=== PATIENT | male | born 1985 | race Caucasian/White ===

== ENCOUNTER 2022-09-05 19:23 | Emergency (ER) | payer MEDICAID, SELFPAY ==
[2022-09-05] VITALS (7 sets, daily range): BP systolic 110–155; BP diastolic 66–111; PULSE 59–87; RESP 18–20; TEMP 36.8–36.9; O2SAT 95–99; BMI 27.7
--- NOTE | 2022-09-05 20:13 | CT_ITS ---
PROCEDURE INFORMATION: Exam: CTA Chest With Contrast Exam date and time: 09/05/2022 8:31 PM Age: 37 years old Clinical indication: Other: Hemetesis; Additional info: Hematemesis, epigsagtric pain to back TECHNIQUE: Imaging protocol: Computed tomographic angiography of the chest with contrast. Exam focused on the arteries. 3D rendering (Not supervised by radiologist): MIP and/or 3D reconstructed images were created by the technologist. Radiation optimization: All CT scans at this facility use at least one of these dose optimization techniques: automated exposure control; mA and/or kV adjustment per patient size (includes targeted exams where dose is matched to clinical indication); or iterative reconstruction. Contrast material: ISOVUE 370; Contrast volume: 100 ml; Contrast route: INTRAVENOUS (IV); REPORTING DATA: Count of CT and Cardiac NM exams in prior 12 months: This patient has received 0 known CTs and 0 known cardiac nuclear medicine studies in the 12 months prior to the current study. COMPARISON: No relevant prior studies available. FINDINGS: Pulmonary arteries: No pulmonary emboli. Aorta: No aortic dissection. Lungs: Mild paraseptal emphysema. There is a 10 mm right lower lobe pulmonary nodule on image 53 series 5. Pleural spaces: Unremarkable. No pneumothorax. No pleural effusion. Heart: Unremarkable. No cardiomegaly. No pericardial effusion. Lymph nodes: Unremarkable. No enlarged lymph nodes. Bones/joints: Unremarkable. No acute fracture. Soft tissues: Unremarkable. Other findings: Please see separate report for abdomen/pelvis. IMPRESSION: 1. No aortic dissection. 2. No pulmonary emboli. 3. There is a 10 mm right lower lobe pulmonary nodule on image 53 series 5. For both low risk and high risk patients, consider CT Chest at 3 months, PET/CT, or biopsy. (Reference: Miesha) REFERENCES: Miesha Sher et al. Guidelines for Management of Incidental Pulmonary Nodules Detected on CT Images: From the Fleischner Society 2017. Radiology. 2017;284(1):228-243.
--- NOTE | 2022-09-05 20:13 | CT_ITS ---
PROCEDURE INFORMATION: Exam: CTA Abdomen and Pelvis With Contrast Exam date and time: 09/05/2022 8:31 PM Age: 37 years old Clinical indication: Condition or disease; Other: Hematemesis TECHNIQUE: Imaging protocol: Computed tomographic angiography of the abdomen and pelvis with contrast. Exam focused on the arteries. 3D rendering (Not supervised by radiologist): MIP and/or 3D reconstructed images were created by the technologist. Radiation optimization: All CT scans at this facility use at least one of these dose optimization techniques: automated exposure control; mA and/or kV adjustment per patient size (includes targeted exams where dose is matched to clinical indication); or iterative reconstruction. Contrast material: ISOVUE 370; Contrast volume: 100 ml; Contrast route: INTRAVENOUS (IV); REPORTING DATA: Count of CT and Cardiac NM exams in prior 12 months: This patient has received 0 known CTs and 0 known cardiac nuclear medicine studies in the 12 months prior to the current study. COMPARISON: No relevant prior studies available. FINDINGS: Aorta: No aortic dissection. Celiac trunk and mesenteric arteries: No occlusion or significant stenosis. Renal arteries: No occlusion or significant stenosis. Right iliac arteries: No occlusion or significant stenosis. Left iliac arteries: No occlusion or significant stenosis. Other arteries: The arteries demonstrate mild atherosclerotic disease. Liver: No mass. Gallbladder and bile ducts: Unremarkable. No calcified stones. No ductal dilation. Pancreas: Unremarkable. No mass. No ductal dilation. Spleen: Unremarkable. No splenomegaly. Adrenal glands: Unremarkable. No mass. Kidneys and ureters: Unremarkable. No solid mass. No hydronephrosis. Stomach and bowel: No extravasated contrast in the bowel lumen to identify the site of GI bleed. There is a possible duodenal ulcer (D1 segment) on image 30 series 7 measuring 9 mm. There is surrounding edema. No free air. Moderate amount of stool in the colon. Appendix: No evidence of appendicitis. Intraperitoneal space: See Stomach and bowel finding. Lymph nodes: Unremarkable. No enlarged lymph nodes. Urinary bladder: Unremarkable. No mass. Reproductive: Unremarkable as visualized. Bones/joints: Chronic pars defects of L5. Soft tissues: Tiny fat containing umbilical hernia. Other findings: Please see separate report for CT chest. IMPRESSION: 1. No extravasated contrast in the bowel lumen to identify the site of GI bleed. 2. No aortic dissection. 3. There is a possible duodenal ulcer (D1 segment) on image 30 series 7 measuring 9 mm. There is surrounding edema. No free air.
--- NOTE | 2022-09-05 20:17 | HMH.EDGENADL ---
Discharge Plan Disposition Patient Disposition: Home, Self-Care Prescriptions Prescriptions: New alum-mag hydroxide-simeth [Maalox Advanced] 200-200-20 mg/5 mL suspension 5 ml PO TID PRN (Reason: dyspepsia) Qty: 355 0RF esomeprazole magnesium 40 mg capsule,delayed release(DR/EC) 40 mg PO DAILY 56 Days Qty: 56 0RF famotidine [Pepcid] 20 mg tablet 20 mg PO BID 42 Days Qty: 84 0RF Referrals Follow up/Referrals: Rayo Godwin MD [Primary Care Provider] - See instructions Katelin Baron APRN [Staff Physician] - See instructions Activity Restrictions/Add. Instructions Additional Instructions/Restrictions: Follow-up with gastroenterology, information has been placed in this discharge packet. Take medications as prescribed. Take them for the full 6 weeks. If you have any worsening of your condition or any other concerning signs or symptoms, return to the emergency department or your primary care doctor for further evaluation. Clinical Impressions Clinical Impression: Duodenal ulcer Instructions Patient Instructions: DI for Acute Abdominal Pain Discharge ED Provider: Kalpesh Richmond [facility] Adult HPI General Chief complaint: Abdominal Pain Stated complaint: vomiting up blood Time Seen by Provider: 09/05/22 19:30 Mode of Arrival: Family Vehicle Source of Information: Patient Limitations: No Limitations Description of Symptoms (Recalled from ER Triage Doc. by RN): 37 yo male presents with cc of vomiting brown emesis and bright red puddle in the middle . Patient has a history constipation and pain he describes as ulcer-like . Location mid-epigastric. Afebrile. No urinary issues. VSS. States has been on Linzess in the past to help with this. History of Present Illness HPI narrative: This is a 37-year-old male with history of a stomach problem, presenting with hematemesis. Patient states that he has had abdominal pain for few days. He has chronic abdominal pain but acute over the last couple of days has been worse. Lying on his back makes it better, vomiting makes it worse. Starts in his epigastrium, radiates through to his back. Patient started having hematemesis today x3. Bright red blood. Denies fevers, blood in the stool, although he has been constipated and has not had a bowel movement for about 5 days. Denies fevers or chills, dysuria or hematuria, cough, hemoptysis, shortness of breath, chest pain, or any other concerns. Related Data Previous Rx's Medication Instructions Recorded aluminum-mag hydroxide-simethicone 5 ml PO TID PRN dyspepsia #355 mL 09/05/22 200 mg-200 mg-20 mg/5 mL oral susp (Maalox Advanced) esomeprazole magnesium 40 mg 40 mg PO DAILY 56 days #56 caps 09/05/22 capsule,delayed release famotidine 20 mg tablet (Pepcid) 20 mg PO BID 6 weeks #84 tabs 09/05/22 Allergies Allergy/AdvReac Type Severity Reaction Status Date / Time No Known Allergies Allergy Verified 09/05/22 19:39 [facility] Disclaimer: The information contained in this section may have been updated after the patient was seen, as this information can be updated by other users. Social History Smoking Status: Unknown if ever smoked alcohol intake: current current occupational status: employed Travel in the last 8 weeks: None ROS Obtained: Yes All systems reviewed & no additional complaints except as documented Physical Exam General General appearance: alert, in no apparent distress and other ( ) Head Head exam: atraumatic and normocephalic Eye Eye exam: Present normal appearance, PERRL and EOMI ENT ENT exam: Present mucous membranes moist Neck Neck exam: Present normal inspection, full ROM and trachea midline Respiratory Respiratory exam: Absent respiratory distress, wheezes, stridor, accessory muscle use or prolonged expiratory phase Cardiovascular Cardiovascular exam: Present regular rate and normal rhythm Abdominal Exam Abdominal exam: Present soft; Absent distention, tenderness, gu
--- NOTE | 2022-09-05 20:25 | PC.NURSE ---
pt to rad.
--- NOTE | 2022-09-05 20:34 | PC.NURSE ---
pt returned from rad.
[2022-09-05 20:37] LABS: Basophils # 0.1 K/mm3 (0-0.2); Basophils % 0.5 % (0.1-2.0); Eosinophils # 0.3 K/mm3 (0.0-0.4); Eosinophils % 2.4 % (0.1-12.0); Hematocrit 47.2 % (42.0-52.0); Hemoglobin 15.1 g/dL (14.1-18.0); Lymphocytes # 2.3 K/mm3 (0.7-4.5); Lymphocytes % 20.5 % (10-50); Mean Corpuscular Hemoglobin 28.9 pg (27.0-31.2); Mean Corpuscular Volume 90.5 fl (80-94); Mean Platelet Volume 8.6 fl (7.4-10.4); Monocytes # 0.5 K/mm3 (0.1-1.0); Monocytes % 4.3 % (1.7-9.3); Neutrophils # 7.9 K/mm3 (1.8-7.8); Neutrophils % 72.2 % (37.0-80.0); Platelet Count 328 K/mm3 (142-424); Red Blood Count 5.22 M/mm3 (4.60-6.20); Red Cell Distribution Width 13.5 % (11.5-17.5)
[2022-09-05 20:37] LABS: Microscopic, Urine URINE MICROSCOPIC (MICROSCOPIC)
[2022-09-05 20:39] LABS: Appearance,Urine CLEAR (Clear); Bilirubin,Urine Negative (Negative); Blood, Urine 1+ (Negative); Color,Urine YELLOW (Yellow); Glucose,Urine (UA) Negative (Negative); Ketones,Urine Negative (Negative); Leukocyte Esterase,Urine Negative (Negative); Nitrate,Urine Negative (Negative); Protein,Urine Negative (Negative); Specific Gravity, Urine 1.025 (1.005-1.030); Urobilinogen,Urine 0.2 EU/dl (0.2)
[2022-09-05 20:40] LABS: Alanine Aminotransferase 21 U/L (12-78); Albumin Level 4.5 g/dl (3.5-5.0); Albumin/Globulin Ratio 1.4 (1.1-1.8); Alkaline Phosphatase 76 U/L (38-126); Aspartate Amino Transferase 30 U/L (17-59); Bilirubin,Total 0.4 mg/dl (0.2-1.3); Blood Urea Nitrogen 9 mg/dl (9-20); Calcium 9.2 mg/dl (8.4-10.2); Carbon Dioxide 31 mmol/L (22.0-30.0); Chloride 103 mmol/L (98-107); Creatinine Clearance Estimated 170 mL/min (50-200); Estimated Glomerular Filt Rate 109 ml/min (>60); GFR (African American) 132 ML/MIN (>60); Globulin 3.3 g/dL (1.3-3.2); Glucose 105 mg/dl (74-100); Lipase 35 U/L (23-300); Sodium 142 mmol/L (136-145); Total Protein,Serum 7.8 g/dl (6.3-8.2)
--- NOTE | 2022-09-05 20:58 | PC.NURSE ---
pt needs nothing at this time,call light at bs
[2022-09-05 21:20] LABS: Mucus,Urine Trace /lpf; RBC,Urine Occasional #/hpf (0-3); Squamous Epithelial Cell,Urine Occasional #/hpf (0-5)
--- NOTE | 2022-09-05 22:37 | PC.NURSE ---
pt sleeping in bed nothing needed at this time family at bs
--- NOTE | 2022-09-05 22:45 | PC.NURSE ---
Dr. Richmond at BS
== END 2022-09-05 23:12 | disposition home or self-care (01) ==
PROVIDERS: Emergency Provider Emergency Medicine; PCP Family Medicine
DX: K26.9 Duodenal ulcer, unspecified as acute or chronic, without hemorrhage or perforation (principal); R10.13 Epigastric pain
CPT/HCPCS: 36415; 71275; 74174; 80053; 81001; 83690; 85025; 86850; 96361; 96374; 96375; 99285; Q9967

== ENCOUNTER 2024-02-11 08:57 | Outpatient (CLI) | payer MEDICAID, SELFPAY ==
--- NOTE | 2024-02-11 09:06 | FL_ITS ---
FINAL REPORT CLINICAL HISTORY: Loss of appetite weight 1380.56 dap 0.30 fluoro FINDINGS: SMALL BOWEL FOLLOW-THROUGH HISTORY: Constipation, loss of appetite. PROCEDURE: The patient ingested barium. Spot and overhead films were obtained. 16 images were obtained. FINDINGS: Inspector And Clipper film demonstrates moderate stool in the colon. The transit time to the colon is normal. Contrast reaches the colon at 1.5 hours. The mucosal fold pattern is normal. Spot images of the terminal ileum are unremarkable. FLUOROSCOPY TIME: 0.30 minutes Fluoro Dose: 1380.56 DAP in [employer] IMPRESSION: Normal small bowel follow-through. Reviewed, Interpreted and Dictated by Sudha Wilson MD Transcribed by Lesly Medina PA-C Authenticated and [facility]
[2024-02-11] MEDS: BARIUM SULFATE(E-Z-AC);750ML BOTTLE 750 ML PO (10:35)
== END 2024-02-11 23:59 | disposition home or self-care (01) ==
PROVIDERS: PCP Family Medicine; Visit Provider Nurse Practitioner Family
DX: R10.84 Generalized abdominal pain (principal); R63.0 Anorexia; R63.4 Abnormal weight loss; R11.2 Nausea with vomiting, unspecified; K59.09 Other constipation; R14.0 Abdominal distension (gaseous); K21.9 Gastro-esophageal reflux disease without esophagitis
CPT/HCPCS: 74250

== ENCOUNTER 2024-02-25 10:29 | Emergency (ER) | payer MEDICAID, SELFPAY ==
[2024-02-25 10:35] VITALS: BP 129/78; PULSE 88; O2SAT 100
--- NOTE | 2024-02-25 10:36 | PC.NURSE ---
UA sent to lab
[2024-02-25 10:38] LABS: Microscopic, Urine URINE MICROSCOPIC (MICROSCOPIC)
[2024-02-25 10:43] VITALS: BP 129/78; PULSE 89; RESP 18; TEMP 36.6; O2SAT 99; BMI 31.6
--- NOTE | 2024-02-25 10:46 | PC.NURSE ---
Dr. Richmond at BS for pt eval
[2024-02-25] MEDS: PANTOPRAZOLE 40MG VIAL 40 MG IV (10:53)
[2024-02-25] MEDS: BELLADONNA ALKALOIDS 60 ML ML PO (10:53)
[2024-02-25] MEDS: MAGNESIUM CITRATE 10OZ BOTTLE 10 OZ PO (10:57)
--- NOTE | 2024-02-25 10:58 | HMH.EDGENADL ---
Discharge Plan Disposition Patient Disposition: Home, Self-Care Chief Complaint: Abdominal Pain Prescriptions Prescriptions: No Action lubiprostone [Amitiza] 24 mcg capsule 24 mcg PO BID Qty: 60 5RF omeprazole 40 mg capsule,delayed release(DR/EC) 40 mg PO BID Qty: 60 3RF buprenorphine-naloxone 8-2 mg tablet, sublingual 2 tab sublingual DAILY alum-mag hydroxide-simeth [Maalox Advanced] 200-200-20 mg/5 mL suspension 5 ml PO TID PRN (Reason: dyspepsia) Qty: 355 5RF Referrals Follow up/Referrals: Kyle Delacruz II, MD [Staff Physician] - See instructions Rayo Godwin MD [Primary Care Provider] - See instructions Activity Restrictions/Add. Instructions Additional Instructions/Restrictions: Call your family doctor to establish care for this visit to the emergency department and schedule follow-up within 48 hours to ensure improvement. If you have any worsening of your condition or any other concerning signs or symptoms, return to the emergency department or your primary care doctor for further evaluation. Bowel regimen as discussed and provided. Follow-up with gastroenterology, information here, for further evaluation of ulcers and treatment. Continue taking your acid medication 40 mg daily. Be sure to avoid ibuprofen, naproxen, and other NSAIDs, alcohol, caffeine, and carbonated beverages is much as possible till follow-up. Clinical Impressions Clinical Impression: Duodenal ulcer, Acute constipation Instructions Patient Instructions: DI for Acute Abdominal Pain Print Language Print Language: Andorran Discharge ED Provider: Kalpesh Richmond General Adult HPI General Chief complaint: Abdominal Pain Stated complaint: stomach pain, vomiting Time Seen by Provider: 02/25/24 10:35 Mode of Arrival: Ambulatory Source of Information: Patient Limitations: No Limitations Description of Symptoms (Recalled from ER Triage Doc. by RN): Pt presents with c/o mid upper abd pain, N/V. Per patient last BM was before . Pt states pain is intermittent, rates it a 10/10 when the pain does occur. Pt has a hx of GERD, and h pylori. History of Present Illness HPI narrative: Please note that above description of symptoms, in this electronic medical record under categorization of recalled from ER triage doctor by RN are reflective of an initial nursing assessment, however, is not reflective of my full history and physical exam that was personally taken and clarified. Consequentially, this preceding description of symptoms, which may include the patient's categorized chief complaint in the EMR, do not reflect my personal clinical impression, and the ultimate description of history of present illness and patient stated complaints should be deferred to this section of the note. Unless stated otherwise or congruent with this section of the note, additional signs, symptoms, or incongruence should be interpreted as inaccurate with my clinical impression. Related Data Home Medications ?Medication ?Instructions ?Recorded ?Confirmed buprenorphine 8 mg-naloxone 2 mg 2 tab sublingual DAILY 02/20/23 12/05/23 sublingual tablet Previous Rx's ?Medication ?Instructions ?Recorded aluminum-mag hydroxide-simethicone 5 ml PO TID PRN dyspepsia #355 mL 02/20/23 200 mg-200 mg-20 mg/5 mL oral susp (Maalox Advanced) lubiprostone 24 mcg capsule 24 mcg PO BID #60 caps 12/05/23 (Amitiza) omeprazole 40 mg capsule,delayed 40 mg PO BID #60 caps 12/05/23 release Allergies Allergy/AdvReac Type Severity Reaction Status Date / Time No Known Allergies Allergy Verified 12/05/23 09:53 [facility] Disclaimer: The information contained in this section may have been updated after the patient was seen, as this information can be updated by other users. Medical History History of gastroesophageal reflux (GERD) Surgical History History of dental surgery Family History Other Family history of cancer Family history of myocardial infarction Social History Smoking Status: Current some day smoker alcohol intake: never substance use type: former substance user current occupational status: employed Travel in the last 8 weeks: None Have you lived/traveled outside [place] in past 30 days?: No Contact w/someone who lives/traveled outside US past 30 days?: No Exposure to someone with infectious disease in past 14 days?: No Do you have a fever (greater than 100.4 F or 38 C)?: No Have you tested positive for COVID-19: No Exposed to someone with COVID-19 in past 14 days?: No Do you have a sore throat?: No Do you have a cough?: No Do you have any weakness?: No Do you have any diarrhea?: No Are you experiencing any unusual bleeding?: No Do you have any muscle aches/pain?: No Do you have any abdominal pain?: Yes Are you experiencing loss of taste or smell?: No Other Medical History Have you received the Pneumonia Vaccine: No ROS Obtained: Yes All systems reviewed & no additional complaints except as documented Physical Exam General General appearance: alert Head Head exam: atraumatic and normocephalic Eye Eye exam: Present normal appearance, PERRL and EOMI Neck Neck exam: Present normal inspection, full ROM and trachea midline Respiratory Respiratory exam: Present normal lung sounds bilaterally; Absent respiratory distress, wheezes, stridor, accessory muscle use or prolonged expiratory phase Cardiovascular Cardiovascular exam: Present regular rate, normal rhythm and other (Pulses equal symmetric in upper and lower extremities) Abdominal Exam Abdominal exam: Present soft; Absent distention, tenderness, guarding, rebound, rigidity or pulsatile mass Extremities Exam Extremities exam: Absent edema Neurological Exam Neurological exam: Present alert, oriented X3 and CN II-XII intact; Absent motor sensory deficit Skin Skin exam: Present warm and dry; Absent diaphoresis or erythema Medical Decision Making Medical Records Medical records reviewed: Yes I reviewed the patient's medical records. Screening: Per USPSTF and CDC recommendations, given the prevalence of disease in our region, it is our hospital?s policy to screen for HIV and viral Hepatitis for all patients aged 18 and over and those with ongoing risk factors. Abiel Inquiry Pt receiving controlled substance: No Abiel was queried for this patient: No Vital Signs: 02/25/24 10:35 02/25/24 10:43 02/25/24 12:07 Temperature 97.9 F Temperature Source Oral Pulse Rate 88 75 Pulse Rate [Right Radial] 89 Respiratory Rate 18 Blood Pressure 129/78 119/88 Blood Pressure [Right Arm] 129/78 Blood Pressure Mean [Right Arm] 95 Blood Pressure Source [Right Arm] Automatic Cuff Blood Pressure Position [Right Arm] Sitting 02 Sat by Pulse Oximetry 100 99 100 Oxygen Delivery Method Room Air Room Air Lab Data Lab Results 02/25/24 10:34: Urine Color Yellow, Urine Appearance Clear, Urine pH 6.0, Ur Specific [place] >= 1.030, Urine Protein Negative, Urine Glucose (UA) Negative, Urine Ketones Trace, Urine Blood 2+ A, Urine Nitrate Negative, Urine Bilirubin 1+ A, Urine Urobilinogen 0.2, Ur Leukocyte Esterase Negative, Urine RBC Occasional, Urine WBC Occasional, Ur Squamous Epith Cells 20-50, Urine Bacteria Trace 02/25/24 10:50: WBC 11.6 H, RBC 5.31, Hgb 16.1, Hct 45.9, MCV 86.4, MCH 30.3, MCHC 35.1, RDW 12.5, Plt Count 324, MPV 11.3 H, Neut % (Auto) 73.9, Lymph % (Auto) 18.8, [place] % (Auto) 4.6, Eos % (Auto) 1.8, Baso % (Auto) 0.7, Neut # (Auto) 8.6 H, Lymph # (Auto) 2.2, [place] # (Auto) 0.5, Eos # (Auto) 0.2, Baso # (Auto) 0.1, Sodium 134 L, Potassium 3.7, Chloride 100, Carbon Dioxide 27, Anion Gap 10.7, BUN 9, Creatinine 0.80, Estimated Creat Clear 191, Estimated GFR 108, Est GFR ( Amer) 130, Glucose 159 H, Calcium 9.6, Total Bilirubin 0.8, AST 36, ALT 24, Alkaline Phosphatase 74, Total Protein 7.7, Albumin 4.6, Globulin 3.1, Albumin/Globulin Ratio 1.5, Lipase 59 02/25/24 10:50 02/25/24 10:50 Orders (Tests/Meds): ED MEDICATIONS Generic Name Dose Route Start Last Admin Trade Name Freq PRN Reason Stop Dose Admin Sodium Chloride 10 ml 02/25/24 10:35 Sodium Chloride 0.9% 10ml Vial IV 03/26/24 10:34 NEEDED PRN dilute protonix Discontinued Medications Generic Name Dose Route Start Last Admin Trade Name Freq PRN Reason Stop Dose Admin Belladonna Alkaloids 60 ml 02/25/24 10:35 02/25/24 10:53 Belladonna Alkaloids 60 Ml Ml PO 02/25/24 10:36 60 ml ONCE ONE Administration Iopamidol 75 ml 02/25/24 12:23 02/25/24 12:23 Iopamidol-370 (76%);100ml Bottle IV 02/25/24 12:24 75 ml ONCE ONE Administration Magnesium Citrate 10 oz 02/25/24 10:51 02/25/24 10:57 Magnesium Citrate 10oz Bottle PO 02/25/24 10:52 10 oz ONCE ONE Administration Pantoprazole Sodium 40 mg 02/25/24 10:35 02/25/24 10:53 Pantoprazole 40mg Vial IV 02/25/24 10:36 40 mg ONCE ONE Administration Sodium Chloride 10 ml 02/25/24 12:23 02/25/24 12:23 Sodium Chloride 0.9% 10ml Syr (Rad Only) IV 02/25/24 12:24 10 ml ONCE ONE Administration ORDERS Category Date Time Status CT abdomen pelvis w con Stat Cat Scan 02/25/24 12:06 Completed CBC w/Auto Diff [Complete Blood Count Auto Diff] Stat Lab 02/25/24 10:50 Completed CMP [Comprehensive Metabolic Panel] Stat Lab 02/25/24 10:50 Completed Lipase Stat Lab 02/25/24 10:50 Completed UA [Urinalysis and Microscopic] Stat Lab 02/25/24 10:34 Completed Medical Decision Narrative: 39-year-old male with history of GERD, duodenal ulcer, H. pylori, chronic constipation presenting with abdominal pain, vomiting. Patient states that he has not had a bowel movement since 02/02/2024. States that he has been nauseated. Had a small bowel upper GI series done on 02/10 and states that he had a bowel movement after that, but has not had one since. Patient's timelines do not seem to line up with any of the story. States that he has been taking fiber every day, was taking MiraLAX for a couple of days, but ended up stopping it because it did not seem to be working. Has tried other medications, does not remember the names of them. Abdominal pain is epigastric, intermittently radiates to his back, associated with vomiting that is nonbloody. No blood in his stool. Still passing gas. History obtained with patient. It should be noted the patient is on Suboxone maintenance therapy for previous opiate use which is likely causing constipation complicating care. History was obtained via conversation with patient. On arrival, patient hemodynamically stable, alert, oriented x4, appropriate, GCS 15, moving all extremities spontaneously, pupils equal and reactive to light. Full physical exam performed and significant for well-appearing male no acute distress. Speaking full sentences. Abdomen soft, nontender, nondistended. No overlying skin changes. Differential includes PUD, gastritis duodenal ulcer, pancreatitis, constipation, colitis, cholecystitis, mesenteric ischemia, among others. Patient placed on continuous cardiac monitoring and continuous pulse ox with initial blood pressure 129/78, heart rate 89, saturation 99% on room air. Patient was given Protonix and GI cocktail and magnesium citrate for symptomatic management and correction of underlying abnormalities. Workup independently interpreted and significant for nonactionable CBC or chemistry. Lipase negative, urinalysis with blood and bilirubin, but contaminated sample. On reevaluation, patient states he is not feeling much better with mag citrate, still not had bowel movement. Because of this, CT of the abdomen and pelvis was ordered to further evaluate patient symptoms. On independent interpretation of imaging, no acute intra-abdominal abnormality. He does have fluid-filled small bowel consistent with enteritis versus stimulant laxative induced. See radiology read for full review of final results. Patient does also have oral contrast from 02/10 apparently from 15 days ago consistent with constipation. Given patient presentation, workup, history, this most likely represents constipation. Patient also has redemonstration of peptic ulcer disease. Because patient at baseline without signs or symptoms of clinical decompensation, deemed appropriate for discharge. Results were relayed to patient who voiced understanding and were agreeable to outpatient management and follow up. I discussed my clinical impression with patient and answered all questions. At this time, the evidence for any other entities in the differential is insufficient to warrant any further testing or ED observation. This was explained as well. Advisory was given that persistent or worsening symptoms require further evaluation. I confirmed the understanding of this discussion. Police Chief disclaimer Much of this encounter note is an electronic certified tower climber spoken language to printed text. Electronic certified tower climber of the spoken language may permit errors. Although I have reviewed the note, some errors may still exist. Critical Care Critical Care Time Critical Care Time: No
[2024-02-25 10:59] LABS: Appearance,Urine CLEAR (Clear); Blood, Urine 2+ (Negative); Color,Urine YELLOW (Yellow); Glucose,Urine (UA) Negative (Negative); Ketones,Urine TRACE (Negative); Leukocyte Esterase,Urine Negative (Negative); Nitrate,Urine Negative (Negative); Protein,Urine Negative (Negative); Specific Gravity, Urine >= 1.030 (1.005-1.030); Urobilinogen,Urine 0.2 EU/dl (0.2)
[2024-02-25 11:02] LABS: Basophils # 0.1 K/mm3 (0-0.2); Basophils % 0.7 % (0.1-2.0); Eosinophils # 0.2 K/mm3 (0.0-0.4); Eosinophils % 1.8 % (0.1-12.0); Hematocrit 45.9 % (42.0-52.0); Hemoglobin 16.1 g/dL (14.1-18.0); Lymphocytes # 2.2 K/mm3 (0.7-4.5); Lymphocytes % 18.8 % (10-50); Mean Corpuscular HGB Conc 35.1 g/dL (31.8-35.4); Mean Corpuscular Hemoglobin 30.3 pg (27.0-31.2); Mean Corpuscular Volume 86.4 fl (80-94); Mean Platelet Volume 11.3 fl (7.4-10.4); Monocytes # 0.5 K/mm3 (0.1-1.0); Monocytes % 4.6 % (1.7-9.3); Neutrophils # 8.6 K/mm3 (1.8-7.8); Neutrophils % 73.9 % (37.0-80.0); Platelet Count 324 K/mm3 (142-424); Red Blood Count 5.31 M/mm3 (4.60-6.20); Red Cell Distribution Width 12.5 % (11.5-17.5); White Blood Count 11.6 K/mm3 (4.8-10.8)
[2024-02-25 11:24] LABS: Bilirubin,Urine 1+ (Negative)
[2024-02-25 11:26] LABS: Bacteria,Urine Trace /lpf; RBC,Urine Occasional #/hpf (0-3); Squamous Epithelial Cell,Urine 20-50 #/hpf (0-5); WBC,Urine Occasional #/hpf (0-3)
[2024-02-25 11:29] LABS: Albumin Level 4.6 g/dl (3.5-5.0); Chloride 100 mmol/L (98-107)
[2024-02-25 11:30] LABS: Potassium 3.7 mmoL/L (3.5-5.1); Sodium 134 mmol/L (136-145)
[2024-02-25 11:32] LABS: Alanine Aminotransferase 24 U/L (12-78); Alkaline Phosphatase 74 U/L (38-126); Anion Gap 10.7 mEq/L (5-15); Aspartate Amino Transferase 36 U/L (17-59); Bilirubin,Total 0.8 mg/dl (0.2-1.3); Blood Urea Nitrogen 9 mg/dl (9-20); Carbon Dioxide 27 mmol/L (22.0-30.0); Creatinine Clearance Estimated 191 mL/min (50-200); Estimated Glomerular Filt Rate 108 ml/min (>60); GFR (African American) 130 ML/MIN (>60)
[2024-02-25 11:33] LABS: Albumin/Globulin Ratio 1.5 (1.1-1.8); Calcium 9.6 mg/dl (8.4-10.2); Globulin 3.1 g/dL (1.3-3.2); Glucose 159 mg/dl (74-100); Lipase 59 U/L (23-300); Total Protein,Serum 7.7 g/dl (6.3-8.2)
--- NOTE | 2024-02-25 12:06 | CT_ITS ---
FINAL REPORT TECHNIQUE: IV contrast enhanced exam. Coronal and sagittal reconstructions were obtained and reviewed. This study was performed with techniques to keep radiation doses as low as reasonably achievable, (ALARA). Individualized dose reduction techniques using automated exposure control or adjustment of mA and/or kV according to the patient's size were employed. CLINICAL HISTORY: Peptic ulcer disease, severe epigastric pain COMPARISON: CTA abdomen 09/06/2022 FINDINGS: Abdomen: No acute density is seen within the lung bases. The gallbladder is unremarkable. Solid abdominal organs are unremarkable. There is mild fold thickening of the proximal and mid jejunum with fluid-filled small bowel suggesting enteritis. Thick-walled duodenal bulb could represent peptic ulcer disease. There is no evidence of obstruction. No free air. There is no adenopathy. Pelvis: The appendix is not seen and presumed surgically absent. Urinary bladder and prostate are unremarkable. Pelvic bowel loops are unremarkable. There is no free fluid. No pelvic mass is seen. IMPRESSION: Abnormal fold thickening involving proximal and mid jejunum raising question of enteritis without obstruction. Wall thickening of the duodenal bulb could represent underlying peptic ulcer disease. Consider follow-up EGD. Reviewed, Interpreted and Dictated by Fahad Berrios MD Transcribed by Garima Garcia Authenticated and [facility]
[2024-02-25 12:07] VITALS: BP 119/88; PULSE 75; O2SAT 100
--- NOTE | 2024-02-25 12:18 | PC.NURSE ---
pt ambulatory to CT with networking technician
[2024-02-25] MEDS: IOPAMIDOL-370 (76%);100ML BOTTLE 75 ML IV (12:23)
[2024-02-25] MEDS: SODIUM CHLORIDE 0.9% 10ML SYR (RAD ONLY) 10 ML IV (12:23)
--- NOTE | 2024-02-25 12:25 | PC.NURSE ---
pt ambulatory back to ED room 10 from radiology.
[2024-02-25 13:45] VITALS: BP 119/88; PULSE 68; RESP 18; TEMP 36.8; O2SAT 96
== END 2024-02-25 14:01 | disposition home or self-care (01) ==
PROVIDERS: Emergency Provider Emergency Medicine; PCP Family Medicine
DX: K26.9 Duodenal ulcer, unspecified as acute or chronic, without hemorrhage or perforation (principal); K59.00 Constipation, unspecified; R10.10 Upper abdominal pain, unspecified; R11.2 Nausea with vomiting, unspecified
CPT/HCPCS: 74177; 80053; 81001; 83690; 85025; 96374; 99285; Q9967

== ENCOUNTER 2024-04-28 11:49 | Outpatient (CLI) | payer MEDICAID, SELFPAY ==
[2024-04-29 18:14] LABS: H. pylori Breath Test Positive (Negative)
== END 2024-04-28 23:59 | disposition home or self-care (01) ==
LOC: LAB 11:50
PROVIDERS: PCP Family Medicine; Visit Provider Nurse Practitioner Family
DX: A04.8 Other specified bacterial intestinal infections (principal); K59.00 Constipation, unspecified; R11.0 Nausea
CPT/HCPCS: 83013